=== PATIENT | male | born 1990 | race Caucasian/White ===

== ENCOUNTER 2017-02-23 20:59 | Emergency (ER) | payer MEDICAID ==
--- NOTE | ~2017-02-23 | ER ---
PATIENT'S NAME: ATILIO [facility] AGE: 26 Y [address] ROOM: [place] [address] LOCATION: [facility] ADMIT DATE: 02/23/2017 ER/Outpatient Report DISCHARGE DATE: 02/23/2017 FAMILY PHYSICIAN: PHYSICIAN, NO ATTENDING PHYSICIAN: Prakash Rouse Admission date and time documented in the medical record. I saw the patient at 2140 hours. CHIEF COMPLAINT: Injury to the distal phalanx and DIP joint of the left middle finger. HISTORY OF PRESENT ILLNESS: The patient is a 26-year-old male who about 1500 hours this afternoon, injured the distal phalanx and the DIP joint of the left middle finger. Swollen, painful. He wanted to make sure he did not fracture or have any type of injury, so presented to the emergency room for evaluation. No other injuries. No other complaints. HOME MEDICATIONS: None. ALLERGIES: NONE. SOCIAL HISTORY: The patient smokes a pack of cigarettes per day. Does use marijuana on a daily basis. Alcohol rarely. SIGNIFICANT PAST MEDICAL HISTORY: Tobacco and marijuana abuse, otherwise negative. OPERATIONS: None. REVIEW OF SYSTEMS: All systems reviewed by me are negative with the exception of those discussed in the history of present illness. PHYSICAL EXAMINATION: VITAL SIGNS: Temperature 98 tympanic, pulse 91, respirations 16, blood pressure 121/65, and O2 saturation on room air is 95%. EXTREMITIES: On examination of the finger, he has some swelling and little bit of bruising to the distal phalanx and DIP joint of the left third finger. He can flex and extend the distal phalanx. There is no gross deformity other PATIENT'S NAME: ATILIO [facility] AGE: 26 Y [address] ROOM: [place], [place] [address] LOCATION: [facility] ADMIT DATE: 02/23/2017 ER/Outpatient Report DISCHARGE DATE: 02/23/2017 FAMILY PHYSICIAN: PHYSICIAN, NO ATTENDING PHYSICIAN: Prakash Rouse than the mild swelling. Capillary refill is intact. Neurovascularly intact. No other injuries. IMAGING DATA: X-ray showed no fracture or dislocation. We will review x-ray with the radiologist. IMPRESSION: Injury to distal phalanx and distal interphalangeal joint of the left third finger. This appears to be a sprain and soft tissue injury without any evidence of fracture or dislocation. PLAN: The patient dismissed home. Observation. Activity as tolerated. Ice as needed, intermittently for the first 72 hours. Finger guard. Aleve 2 orally 2 times a day with food x7 to 10 days. Follow up with the personal physician or orthopedic surgeon if no improvement in 7 to 10 days. Discussion ensued with the patient concerning my findings and recommendations, he understands. MD JHONATAN SHAIKH/modl /[id number] d: 02/23/170 t: 02/27/17 1812, OUTPATIENT REPORT
== END 2017-02-23 22:09 | disposition disaster alternative care site (69) ==
LOC: GACC 20:59
DX: S69.92XA Unspecified injury of left wrist, hand and finger(s), initial encounter (principal); F17.210 Nicotine dependence, cigarettes, uncomplicated; X58.XXXA Exposure to other specified factors, initial encounter